=== PATIENT | female | born 1935 | race Caucasian/White ===

== ENCOUNTER 2021-11-25 10:16 | Emergency (ER) | payer MEDICARE, OTHER, SELFPAY ==
[2021-11-25] VITALS (43 sets, daily range): BP systolic 127–162; BP diastolic 60–73; PULSE 62–85; RESP 17–50; O2SAT 93–98
--- NOTE | 2021-11-25 10:18 | ED_ITS ---
HPI - Dizziness <Miguel A Bourgeois MD - Last Filed: 11/25/21 22:20> General Chief Complaint: Neuro Symptoms/Deficit Stated Complaint: Altered Mental Status Time Seen by Provider: 11/25/21 10:17 Source: EMS Mode of arrival: EMS Limitations: altered mental status History of Present Illness HPI Narrative: Patient arrives by EMS. She was at a dialysis center in [place], she was about 15 minutes into dialysis. Her blood pressure apparently dropped to 88. A blood pressure drop is not uncommon for her, this was more than usual. She became rigid. She appeared unresponsive. The event started 30-40 minutes ago. Paramedics raise the concern for seizure, there was no tonic clonic activity. Upon arrival she is moving extremities spontaneously. She was initially not speaking, she is now saying words spontaneously. She does not respond directly to questioning. She lives in a care facility in [place], [place], her caregiver arrives. She has renal failure, she takes dialysis Thursday, Thursday and Thursday. She has no history of hypertension or diabetes. has undergone a recent cardiology evaluation. She passed a stress test. Echo revealed global hypokinesis with EF of 35-40%. She has no history of seizures. Her caregiver applies there was no recent illness. She is normally alert and responsive. She has no history of CVA. Her med list is less far unavailable. Related Data Home Medications Medication Instructions Recorded Confirmed B-complex with vitamin C 1 tab PO DAILY 11/25/21 11/25/21 acetaminophen 500 mg tablet 500 mg PO Q6H PRN 11/25/21 11/25/21 albuterol 90 mcg/actuation aerosol 2 INHALATION 11/25/21 inhaler benzonatate 200 mg PO TID PRN 11/25/21 11/25/21 calcium carbonate 500 1 tab PO DAILY 11/25/21 mg-simethicone 20 mg chewable tablet fluticasone propionate 110 2 puff INHALATION BID 11/25/21 11/25/21 mcg/actuation HFA aerosol inhaler (Flovent HFA) fluticasone propionate 50 1 spray INTRANASAL DAILY 11/25/21 11/25/21 mcg/actuation nasal spray,suspension hydroxychloroquine 200 mg tablet 400 mg PO DAILY 11/25/21 11/25/21 (Plaquenil) inulin 2.5 gram chewable tablet 5 g PO DAILY 11/25/21 11/25/21 loperamide 2 mg capsule 1 mg PO Q2D 11/25/21 11/25/21 melatonin 5 mg chewable tablet 5 mg PO BEDTIME PRN 11/25/21 11/25/21 omeprazole 20 mg capsule,delayed 20 mg PO DAILY 11/25/21 11/25/21 release peg 400-propylene glycol 0.4 %-0.3 2 drp OPHTHALMIC (EYE) DAILY 11/25/21 % eye drops torsemide 20 mg tablet 60 mg PO DAILY 11/25/21 11/25/21 warfarin 1 mg tablet 1 mg PO DAILY 11/25/21 11/25/21 Allergies Allergy/AdvReac Type Severity Reaction Status Date / Time amoxicillin Allergy Verified 11/25/21 11:59 ciprofloxacin Allergy Verified 11/25/21 11:59 codeine Allergy Verified 11/25/21 11:59 Sulfa (Sulfonamide Allergy Verified 11/25/21 11:59 Antibiotics) Review of Systems <Miguel A Bourgeois MD - Last Filed: 11/25/21 22:20> Review of Systems Narrative: Limited HPI given patient's medical condition. Patient History <Miguel A Bourgeois MD - Last Filed: 11/25/21 22:20> Medical History (Updated 11/25/21 @ 22:20 by Miguel A Bourgeois MD) Asthma Dialysis patient Renal failure Exam <Miguel A Bourgeois MD - Last Filed: 11/25/21 22:20> Initial Vital Signs Initial Vital Signs: Vital Signs Pulse Rate 85 11/25/21 10:18 Pulse Oximetry 96 11/25/21 10:18 Const Other: The patient was initially alert and nonresponsive, her speech and communication gradually improved. [facility] Head: normal to inspection, normocephalic and atraumatic Face and sinus: normal facial exam Mouth: oral mucosae normal Throat: posterior oropharynx normal Eyes General: appearance normal, both eyes and all related structures Conjunctivae: conjunctivae normal Sclera: sclerae normal Pupils: PERRL EOM: EOM intact bilaterally Neck Neck: No JVD Resp Auscultation: clear to auscultation bilaterally Cardio Rate: regular rate Rhythm: regular rhythm Heart Sounds: S1 normal, S2 normal, no gallops and no murmurs GI Inspection: normal to inspection Palpation: soft and No tender Auscultation: normal bowel sounds Back/Spine/Pelvis Back: normal to inspection Skin General: no rashes or lesions noted Neuro General: patient alert and patient awake Speech: other (Initially garbled, progressively clearing.) Motor: muscle tone normal throughout Sensory Exam: no sensory deficits noted Extrem General: normal to inspection and full ROM Other: Right arm dialysis fistula Psych Appearance: disheveled <Juvencio Aleman DO - Last Filed: 11/26/21 07:15> Initial Vital Signs Initial Vital Signs: Vital Signs Pulse Rate 85 11/25/21 10:18 Pulse Oximetry 96 11/25/21 10:18 Course <Miguel A Bourgeois MD - Last Filed: 11/25/21 22:20> Course Course Narrative: The patient presented with acute mental status changes, code stroke was called. She gradually improved. There are no obvious motor deficits. Speech and mentation were the last to resolve. Head CT nor MRI showed acute stroke. Is was later recognized from healthcare provider and her daughter that she was hypertensive while receiving dialysis, possible syncopal episode with hypotension. She seemed to improve once a picked upper legs. However it took her about an hour to see her mentation significantly clear. There is no evidence of stroke or significant factor in. Despite her multiple electrolyte abnormalities, none are significant enough to suggest such a problem/event. evaluation manager has been normal. Initially her troponin is elevated, not on suspected with dialysis. EKGs have remained normal. A repeat troponin shows im provement. She has no chest pain or dyspnea. I discussed her CT is with Nephrology, Dr. Curtis at [facility]. He was suspicious of the hypotension. He felt her electrolytes are not so abnormal that she requires immediate dialysis, she should be okay to resume dialysis as scheduled in 2 days. I discussed her troponin with Cardiology, Dr. Powell. He can recognize that the renal failure/dialysis may be contributing to the troponin. He recommended serial analysis of her CK and troponin. If labs are level improving she should follow up for outpatient evaluation. If there is a significant rise in troponin she may require immediate Cardiology attention. The case was discussed our hospitalist, considering dialysis not available here our hospitalist would not accept admission. Multiple other local hospitalist were approached, no beds are available. Her daughter indicated she felt her mother's speech was still garbled. The patient is hard of hearing and wears hearing a ids. With her hearing aids in place, her communication and speech seem be back to baseline. The patient will remain in the ER through the night. Dr. Aleman, my ER partner, is aware her clinical situation and probable disposition. Orders Ordered: ED Orders 11/26/21 01:15 Troponin I Stat 11/26/21 06:00 Troponin I Stat Discontinued Medications Acetaminophen (Acetaminophen 325 Mg Tablet) 650 mg PO NOW ONE Stop: 11/26/21 04:39 Last Admin: 11/26/21 04:46 Dose: 650 mg Documented by: FELICIA Aspirin (Aspirin 81 Mg Chew Tab) 324 mg PO NOW ONE Stop: 11/25/21 12:19 Last Admin: 11/25/21 12:32 Dose: 324 mg Documented by: MAREK Vital Signs Vital signs: Vital Signs - 8 hr 11/25/21 23:30 11/26/21 00:00 11/26/21 00:10 Pulse Rate 62 63 66 Respiratory Rate 22 20 22 Blood Pressure 125/58 L Pulse Oximetry 95 97 82 L 11/26/21 00:30 11/26/21 01:00 11/26/21 01:30 Pulse Rate 64 65 62 Respiratory Rate 22 22 21 Blood Pressure 117/56 L 112/55 L 112/58 L Pulse Oximetry 95 97 95 11/26/21 02:00 11/26/21 02:30 11/26/21 03:00 Pulse Rate 62 64 66 Respiratory Rate 22 23 20 Blood Pressure 128/58 L 135/58 L Pulse Oximetry 96 97 95 11/26/21 03:01 11/26/21 03:30 11/26/21 04:00 Pulse Rate 66 66 66 Respiratory Rate 17 21 22 Blood Pressure 111/55 L 121/57 L 122/58 L Pulse Oximetry 96 11/26/21 04:30 11/26/21 05:00 11/26/21 05:30 Pulse Rate 66 66 64 Respiratory Rate 23 22 Blood Pressure 114/53 L 128/56 L Pulse Oximetry 11/26/21 06:00 11/26/21 06:01 11/26/21 06:30 Pulse Rate 65 66 66 Respiratory Rate 23 23 24 Blood Pressure 120/58 L Pulse Oximetry 96 11/26/21 06:31 Pulse Rate 64 Respiratory Rate 13 Blood Pressure 122/59 L Pulse Oximetry 97 <Juvencio Lanker, DO - Last Filed: 11/26/21 07:15> Orders Ordered: ED Orders 11/26/21 01:15 Troponin I Stat 11/26/21 06:00 Troponin I Stat Discontinued Medications Acetaminophen (Acetaminophen 325 Mg Tablet) 650 mg PO NOW ONE Stop: 11/26/21 04:39 Last Admin: 11/26/21 04:46 Dose: 650 mg Documented by: FELICIA Aspirin (Aspirin 81 Mg Chew Tab) 324 mg PO NOW ONE Stop: 11/25/21 12:19 Last Admin: 11/25/21 12:32 Dose: 324 mg Documented by: MAREK Vital Signs Vital signs: Vital Signs - 8 hr 11/25/21 23:30 11/26/21 00:00 11/26/21 00:10 Pulse Rate 62 63 66 Respiratory Rate 22 20 22 Blood Pressure 125/58 L Pulse Oximetry 95 97 82 L 11/26/21 00:30 11/26/21 01:00 11/26/21 01:30 Pulse Rate 64 65 62 Respiratory Rate 22 22 21 Blood Pressure 117/56 L 112/55 L 112/58 L Pulse Oximetry 95 97 95 11/26/21 02:00 11/26/21 02:30 11/26/21 03:00 Pulse Rate 62 64 66 Respiratory Rate 22 23 20 Blood Pressure 128/58 L 135/58 L Pulse Oximetry 96 97 95 11/26/21 03:01 11/26/21 03:30 11/26/21 04:00 Pulse Rate 66 66 66 Respiratory Rate 17 21 22 Blood Pressure 111/55 L 121/57 L 122/58 L Pulse Oximetry 96 11/26/21 04:30 11/26/21 05:00 11/26/21 05:30 Pulse Rate 66 66 64 Respiratory Rate 23 22 Blood Pressure 114/53 L 128/56 L Pulse Oximetry 11/26/21 06:00 11/26/21 06:01 11/26/21 06:30 Pulse Rate 65 66 66 Respiratory Rate 23 23 24 Blood Pressure 120/58 L Pulse Oximetry 96 11/26/21 06:31 Pulse Rate 64 Respiratory Rate 13 Blood Pressure 122/59 L Pulse Oximetry 97 MDM - Dizziness <Miguel A Bourgeois MD - Last Filed: 11/25/21 22:20> Lab Data Result diagrams: 11/25/21 10:25 03/07/22 10:30 Labs: Lab Results 11/25/21 11/25/21 11/25/21 Range/Units 10:25 10:25 10:25 WBC 6.2 (4.5-11.0) X10^3/uL RBC 3.06 L (4.0-5.2) X10^6/uL Hgb 11.0 L (12.0-16.0) g/dL Hct 32.7 L (36-46) % MCV 106.8 H (80-100) fL MCH 35.9 H (26-34) PG MCHC 33.6 (30-36) % RDW 18.0 H (11.6-14.8) % Plt Count 87 L (150-400) X10^3/uL Neut % (Auto) 84.4 H (50-75) % Lymph % (Auto) 9.6 L (25-40) % [place] % (Auto) 4.6 (3-14) % Eos % (Auto) 1.1 L (2-4) % Baso % (Auto) 0.3 (0-2) % Neut # (Auto) 5200 (6695-6096) /uL Lymph # (Auto) 600 L (1525-1068) /uL [place] # (Auto) 300 (0-900) /uL Eos # (Auto) 100 (0-450) /uL Baso # (Auto) 0 (0-100) /uL PT (10.1-12.7) SECONDS INR (0.9-1.3) Sodium (137-145) mmol/L Potassium (3.4-5.1) mmol/L Chloride (98-107) mmol/L Carbon Dioxide (22-32) mmol/L BUN (7-17) mg/dL Creatinine (0.52-1.04) mg/dL Estimated GFR (>60) mL/min BUN/Creatinine Ratio (6-22) Glucose (80-110) mg/dL Lactate 1.3 (0.7-2.1) mmol/L Calcium (8.4-10.2) mg/dL Phosphorus (2.8-4.1) mg/dL Magnesium (1.6-2.3) mg/dL Total Bilirubin (0.2-1.3) mg/dL AST (14-36) IU/L ALT (<35) IU/L Alkaline Phosphatase (38-126) U/L Ammonia 13 (9-30) umol/L Total Creatine Kinase (30-135) U/L CK-MB (CK-2) CK-MB (CK-2) Rel Index Troponin I (0.01-0.034) ng/mL Total Protein (6.3-8.2) g/dL Albumin (3.5-5.0) g/dL Globulin (1.7-4.1) g/dL Albumin/Globulin Ratio (1.0-2.8) Prolactin (3.0-18.6) ng/mL Urine Color Urine Appearance Urine pH (4.5-8.0) Ur Specific [place] (1.000-1.035) Urine Protein (Negative) Urine Glucose (UA) (Negative) g/dL Urine Ketones (NEGATIVE) Urine Occult Blood (Negative) Urine Nitrate (Negative) Urine Bilirubin (NEGATIVE) Urine Urobilinogen (0.2) E.U./dL Ur Leukocyte Esterase (NEGATIVE) Urine RBC (0-5/HPF) Urine WBC (0-5/HPF) Amorphous Sediment Urine Bacteria (None) Ur Culture Indicated? Salicylates (<20) mg/dL U Opiates 300ng/mL cut (Negative) Ur Oxycodone Screen (Negative) Urine Methadone Screen (Negative) Acetaminophen (10-30) ug/mL Ur Barbiturates Screen (Negative) U Tricyclic Antidepress (Negative) Ur Phencyclidine Scrn (Negative) Ur Amphetamines Screen (Negative) U Methamphetamines Scrn (Negative) Ur MDMA Scrn (Ecstasy) (Negative) U Benzodiazepines Scrn (Negative) Urine Cocaine Screen (Negative) U Marijuana (THC) Screen (Negative) Ethyl Alcohol ( - 10) mg/dL SARS-CoV-2 (PCR) (Negative) 11/25/21 11/25/21 11/25/21 Range/Units 10:25 10:25 10:30 WBC (4.5-11.0) X10^3/uL RBC (4.0-5.2) X10^6/uL Hgb (12.0-16.0) g/dL Hct (36-46) % MCV (80-100) fL MCH (26-34) PG MCHC (30-36) % RDW (11.6-14.8) % Plt Count (150-400) X10^3/uL Neut % (Auto) (50-75) % Lymph % (Auto) (25-40) % [place] % (Auto) (3-14) % Eos % (Auto) (2-4) % Baso % (Auto) (0-2) % Neut # (Auto) (9857-3901) /uL Lymph # (Auto) (4204-1080) /uL [place] # (Auto) (0-900) /uL Eos # (Auto) (0-450) /uL Baso # (Auto) (0-100) /uL PT 17.7 H (10.1-12.7) SECONDS INR 1.6 H (0.9-1.3) Sodium 126 L (137-145) mmol/L Potassium 5.2 H (3.4-5.1) mmol/L Chloride 93 L (98-107) mmol/L Carbon Dioxide 22 (22-32) mmol/L BUN 31 H (7-17) mg/dL Creatinine 3.10 H (0.52-1.04) mg/dL Estimated GFR 14.2 L (>60) mL/min BUN/Creatinine Ratio 10.0 (6-22) Glucose 98 (80-110) mg/dL Lactate (0.7-2.1) mmol/L Calcium 8.9 (8.4-10.2) mg/dL Phosphorus 5.4 H (2.8-4.1) mg/dL Magnesium 2.0 (1.6-2.3) mg/dL Total Bilirubin 0.7 (0.2-1.3) mg/dL AST 66 H (14-36) IU/L ALT 31 (<35) IU/L Alkaline Phosphatase 146 H (38-126) U/L Ammonia (9-30) umol/L Total Creatine Kinase 90 (30-135) U/L CK-MB (CK-2) TNP CK-MB (CK-2) Rel Index TNP Troponin I 0.261 H* (0.01-0.034) ng/mL Total Protein 7.7 (6.3-8.2) g/dL Albumin 4.3 (3.5-5.0) g/dL Globulin 3.4 (1.7-4.1) g/dL Albumin/Globulin Ratio 1.3 (1.0-2.8) Prolactin 20.3 H (3.0-18.6) ng/mL Urine Color Urine Appearance Urine pH (4.5-8.0) Ur Specific [place] (1.000-1.035) Urine Protein (Negative) Urine Glucose (UA) (Negative) g/dL Urine Ketones (NEGATIVE) Urine Occult Blood (Negative) Urine Nitrate (Negative) Urine Bilirubin (NEGATIVE) Urine Urobilinogen (0.2) E.U./dL Ur Leukocyte Esterase (NEGATIVE) Urine RBC (0-5/HPF) Urine WBC (0-5/HPF) Amorphous Sediment Urine Bacteria (None) Ur Culture Indicated? Salicylates < 1.0 (<20) mg/dL U Opiates 300ng/mL cut (Negative) Ur Oxycodone Screen (Negative) Urine Methadone Screen (Negative) Acetaminophen < 10 L (10-30) ug/mL Ur Barbiturates Screen (Negative) U Tricyclic Antidepress (Negative) Ur Phencyclidine Scrn (Negative) Ur Amphetamines Screen (Negative) U Methamphetamines Scrn (Negative) Ur MDMA Scrn (Ecstasy) (Negative) U Benzodiazepines Scrn (Negative) Urine Cocaine Screen (Negative) U Marijuana (THC) Screen (Negative) Ethyl Alcohol < 10 ( - 10) mg/dL SARS-CoV-2 (PCR) (Negative) 11/25/21 11/25/21 11/25/21 Range/Units 10:54 10:54 12:03 WBC (4.5-11.0) X10^3/uL RBC (4.0-5.2) X10^6/uL Hgb (12.0-16.0) g/dL Hct (36-46) % MCV (80-100) fL MCH (26-34) PG MCHC (30-36) % RDW (11.6-14.8) % Plt Count (150-400) X10^3/uL Neut % (Auto) (50-75) % Lymph % (Auto) (25-40) % [place] % (Auto) (3-14) % Eos % (Auto) (2-4) % Baso % (Auto) (0-2) % Neut # (Auto) (9062-7812) /uL Lymph # (Auto) (0333-5313) /uL [place] # (Auto) (0-900) /uL Eos # (Auto) (0-450) /uL Baso # (Auto) (0-100) /uL PT (10.1-12.7) SECONDS INR (0.9-1.3) Sodium (137-145) mmol/L Potassium (3.4-5.1) mmol/L Chloride (98-107) mmol/L Carbon Dioxide (22-32) mmol/L BUN (7-17) mg/dL Creatinine (0.52-1.04) mg/dL Estimated GFR (>60) mL/min BUN/Creatinine Ratio (6-22) Glucose (80-110) mg/dL Lactate (0.7-2.1) mmol/L Calcium (8.4-10.2) mg/dL Phosphorus (2.8-4.1) mg/dL Magnesium (1.6-2.3) mg/dL Total Bilirubin (0.2-1.3) mg/dL AST (14-36) IU/L ALT (<35) IU/L Alkaline Phosphatase (38-126) U/L Ammonia (9-30) umol/L Total Creatine Kinase (30-135) U/L CK-MB (CK-2) CK-MB (CK-2) Rel Index Troponin I (0.01-0.034) ng/mL Total Protein (6.3-8.2) g/dL Albumin (3.5-5.0) g/dL Globulin (1.7-4.1) g/dL Albumin/Globulin Ratio (1.0-2.8) Prolactin (3.0-18.6) ng/mL Urine Color Yellow Urine Appearance Clear Urine pH 8.0 (4.5-8.0) Ur Specific [place] 1.010 (1.000-1.035) Urine Protein 2+ H (Negative) Urine Glucose (UA) Negative (Negative) g/dL Urine Ketones Negative (NEGATIVE) Urine Occult Blood 1+ H (Negative) Urine Nitrate Negative (Negative) Urine Bilirubin Negative (NEGATIVE) Urine Urobilinogen 0.2 (0.2) E.U./dL Ur Leukocyte Esterase Negative (NEGATIVE) Urine RBC 0-1/hpf (0-5/HPF) Urine WBC None seen (0-5/HPF) Amorphous Sediment 2+ Urine Bacteria None seen (None) Ur Culture Indicated? Cult not indicated Salicylates (<20) mg/dL U Opiates 300ng/mL cut Negative (Negative) Ur Oxycodone Screen Negative (Negative) Urine Methadone Screen Negative (Negative) Acetaminophen (10-30) ug/mL Ur Barbiturates Screen Negative (Negative) U Tricyclic Antidepress Negative (Negative) Ur Phencyclidine Scrn Negative (Negative) Ur Amphetamines Screen Negative (Negative) U Methamphetamines Scrn Negative (Negative) Ur MDMA Scrn (Ecstasy) Negative (Negative) U Benzodiazepines Scrn Negative (Negative) Urine Cocaine Screen Negative (Negative) U Marijuana (THC) Screen Negative (Negative) Ethyl Alcohol ( - 10) mg/dL SARS-CoV-2 (PCR) Negative (Negative) 11/25/21 11/26/21 11/26/21 Range/Units 19:30 01:15 06:02 WBC (4.5-11.0) X10^3/uL RBC (4.0-5.2) X10^6/uL Hgb (12.0-16.0) g/dL Hct (36-46) % MCV (80-100) fL MCH (26-34) PG MCHC (30-36) % RDW (11.6-14.8) % Plt Count (150-400) X10^3/uL Neut % (Auto) (50-75) % Lymph % (Auto) (25-40) % [place] % (Auto) (3-14) % Eos % (Auto) (2-4) % Baso % (Auto) (0-2) % Neut # (Auto) (8229-9099) /uL Lymph # (Auto) (8837-8136) /uL [place] # (Auto) (0-900) /uL Eos # (Auto) (0-450) /uL Baso # (Auto) (0-100) /uL PT (10.1-12.7) SECONDS INR (0.9-1.3) Sodium (137-145) mmol/L Potassium (3.4-5.1) mmol/L Chloride (98-107) mmol/L Carbon Dioxide (22-32) mmol/L BUN (7-17) mg/dL Creatinine (0.52-1.04) mg/dL Estimated GFR (>60) mL/min BUN/Creatinine Ratio (6-22) Glucose (80-110) mg/dL Lactate (0.7-2.1) mmol/L Calcium (8.4-10.2) mg/dL Phosphorus (2.8-4.1) mg/dL Magnesium (1.6-2.3) mg/dL Total Bilirubin (0.2-1.3) mg/dL AST (14-36) IU/L ALT (<35) IU/L Alkaline Phosphatase (38-126) U/L Ammonia (9-30) umol/L Total Creatine Kinase (30-135) U/L CK-MB (CK-2) CK-MB (CK-2) Rel Index Troponin I 0.223 H* 0.240 H* 0.265 H* (0.01-0.034) ng/mL Total Protein (6.3-8.2) g/dL Albumin (3.5-5.0) g/dL Globulin (1.7-4.1) g/dL Albumin/Globulin Ratio (1.0-2.8) Prolactin (3.0-18.6) ng/mL Urine Color Urine Appearance Urine pH (4.5-8.0) Ur Specific [place] (1.000-1.035) Urine Protein (Negative) Urine Glucose (UA) (Negative) g/dL Urine Ketones (NEGATIVE) Urine Occult Blood (Negative) Urine Nitrate (Negative) Urine Bilirubin (NEGATIVE) Urine Urobilinogen (0.2) E.U./dL Ur Leukocyte Esterase (NEGATIVE) Urine RBC (0-5/HPF) Urine WBC (0-5/HPF) Amorphous Sediment Urine Bacteria (None) Ur Culture Indicated? Salicylates (<20) mg/dL U Opiates 300ng/mL cut (Negative) Ur Oxycodone Screen (Negative) Urine Methadone Screen (Negative) Acetaminophen (10-30) ug/mL Ur Barbiturates Screen (Negative) U Tricyclic Antidepress (Negative) Ur Phencyclidine Scrn (Negative) Ur Amphetamines Screen (Negative) U Methamphetamines Scrn (Negative) Ur MDMA Scrn (Ecstasy) (Negative) U Benzodiazepines Scrn (Negative) Urine Cocaine Screen (Negative) U Marijuana (THC) Screen (Negative) Ethyl Alcohol ( - 10) mg/dL SARS-CoV-2 (PCR) (Negative) Point of Care Testing Glucose POC [address] scan - head: Radiologist's Impression: [address] [address] [address] Scan Report Signed Patient: Juani Nichole MR#: [id number] : 1935 Acct:[id number] Age/Sex: 86 / F Date of Service: 11/25/21 Loc: ED Accession Number: [id number] ?? Procedure: CT Stroke Ordering Provider: Miguel A Bougreois MD PROCEDURE:? CT STROKE ? INDICATIONS:? CODE STROKE ? TECHNIQUE:? Noncontrast 4.5 mm thick angled axial sections acquired from the foramen magnum to the vertex, with coronal reformats.? For radiation dose reduction, the following was used:? automated exposure control, adjustment of mA and/or kV according to patient size.? ? COMPARISON:? None. ? FINDINGS:? Image quality:? Excellent.? ? CSF spaces:? Basal cisterns are patent.? No extra-axial fluid collections.? The ventricles are symmetric in size and shape.? ? Brain:? No intracranial bleeds or masses.? There is cerebral volume loss for age, with resultant ventricular and sulcal prominence.? There are periventricular and deep white matter chronic small vessel ischemic changes.? There is intracranial internal carotid artery atherosclerosis.? ? Skull and face:? Calvarium and visualized facial bones appear intact, without suspicious lesions.? ? Sinuses:? Visualized sinuses and mastoids are clear.? ? IMPRESSION:? ? 1. No acute intracranial process. ? 2. Moderate to severe atrophy and chronic microvascular ischemic changes. ? The above findings were discussed with Dr. Miguel A Bourgeois on 11/25/2021 at 10:27 a.m. ? This study fulfills neurological imaging criteria for inclusion or exclusion of acute stroke therapies based on available published neurological guidelines.? Brain MRI:: Radiologist's Impression: Launch?Image [address] [address] Magnetic Resonance Report Signed Patient: Juani Nichole MR#: [id number] : 1935 Acct:[id number] Age/Sex: 86 / F Date of Service: 11/25/21 Loc: ED Accession Number: [id number] ?? Procedure: MR head/brain wo con Ordering Provider: Miguel A Bourgeois MD PROCEDURE:? MR HEAD/BRAIN WO CON ? INDICATIONS:? Possible CVA ? TECHNIQUE:? Non-contrast axial T1 spin echo, axial T2 fast spin echo, sagittal and axial FLAIR, coronal T2 fast spin echo, axial gradient echo, axial diffusion and ADC through the brain.? ? COMPARISON:? [facility], CT, CT STROKE, 11/25/2021, 10:11. ? FINDINGS:? Image quality:? Partially degraded by motion artifact. ? CSF spaces:? Ventricles appear symmetric in size and shape.? Basal cisterns are patent.? No extra-axial fluid collections.? ? Brain:? No intracranial bleeds or mass effects.? There is cerebral volume loss for age.? There are periventricular and deep white matter chronic small vessel ischemic changes.? Brainstem appears normal.? Diffusion-weighted images show no acute ischemic insults.? No chronic ischemic insults.? Normal intravascular flow voids are present.? ? Skull and face:? Calvarial bone marrow is normal in signal.? Orbits are normal.? ? Sinuses:? Sinuses and mastoids are clear.? ? IMPRESSION:? 1. Volume loss and small vessel ischemic disease. 2. No acute process.? No recent infarct.? ? ? Dictated by: Doreen Nesbitt M.D. on 11/25/2021 at 15:23 ? ? Approved by: Doreen Nesbitt M.D. on 11/25/2021 at 15:24?? ECG Data Attestation: I personally reviewed and interpreted this ECG as follows: (EKG #1: Normal sinus rhythm rate 82 beats per minute. First-degree AV block. Nonspecific ST T wave changes. No ectopy. EKG #2: No changes from EKG 1.) <Juvencio Aleman, DO - Last Filed: 11/26/21 07:15> Lab Data Labs: Lab Results 11/25/21 11/25/21 11/25/21 Range/Units 10:25 10:25 10:25 WBC 6.2 (4.5-11.0) X10^3/uL RBC 3.06 L (4.0-5.2) X10^6/uL Hgb 11.0 L (12.0-16.0) g/dL Hct 32.7 L (36-46) % MCV 106.8 H (80-100) fL MCH 35.9 H (26-34) PG MCHC 33.6 (30-36) % RDW 18.0 H (11.6-14.8) % Plt Count 87 L (150-400) X10^3/uL Neut % (Auto) 84.4 H (50-75) % Lymph % (Auto) 9.6 L (25-40) % [place] % (Auto) 4.6 (3-14) % Eos % (Auto) 1.1 L (2-4) % Baso % (Auto) 0.3 (0-2) % Neut # (Auto) 5200 (4506-7201) /uL Lymph # (Auto) 600 L (8239-8186) /uL [place] # (Auto) 300 (0-900) /uL Eos # (Auto) 100 (0-450) /uL Baso # (Auto) 0 (0-100) /uL PT (10.1-12.7) SECONDS INR (0.9-1.3) Sodium (137-145) mmol/L Potassium (3.4-5.1) mmol/L Chloride (98-107) mmol/L Carbon Dioxide (22-32) mmol/L BUN (7-17) mg/dL Creatinine (0.52-1.04) mg/dL Estimated GFR (>60) mL/min BUN/Creatinine Ratio (6-22) Glucose (80-110) mg/dL Lactate 1.3 (0.7-2.1) mmol/L Calcium (8.4-10.2) mg/dL Phosphorus (2.8-4.1) mg/dL Magnesium (1.6-2.3) mg/dL Total Bilirubin (0.2-1.3) mg/dL AST (14-36) IU/L ALT (<35) IU/L Alkaline Phosphatase (38-126) U/L Ammonia 13 (9-30) umol/L Total Creatine Kinase (30-135) U/L CK-MB (CK-2) CK-MB (CK-2) Rel Index Troponin I (0.01-0.034) ng/mL Total Protein (6.3-8.2) g/dL Albumin (3.5-5.0) g/dL Globulin (1.7-4.1) g/dL Albumin/Globulin Ratio (1.0-2.8) Prolactin (3.0-18.6) ng/mL Urine Color Urine Appearance Urine pH (4.5-8.0) Ur Specific [place] (1.000-1.035) Urine Protein (Negative) Urine Glucose (UA) (Negative) g/dL Urine Ketones (NEGATIVE) Urine Occult Blood (Negative) Urine Nitrate (Negative) Urine Bilirubin (NEGATIVE) Urine Urobilinogen (0.2) E.U./dL Ur Leukocyte Esterase (NEGATIVE) Urine RBC (0-5/HPF) Urine WBC (0-5/HPF) Amorphous Sediment Urine Bacteria (None) Ur Culture Indicated? Salicylates (<20) mg/dL U Opiates 300ng/mL cut (Negative) Ur Oxycodone Screen (Negative) Urine Methadone Screen (Negative) Acetaminophen (10-30) ug/mL Ur Barbiturates Screen (Negative) U Tricyclic Antidepress (Negative) Ur Phencyclidine Scrn (Negative) Ur Amphetamines Screen (Negative) U Methamphetamines Scrn (Negative) Ur MDMA Scrn (Ecstasy) (Negative) U Benzodiazepines Scrn (Negative) Urine Cocaine Screen (Negative) U Marijuana (THC) Screen (Negative) Ethyl Alcohol ( - 10) mg/dL SARS-CoV-2 (PCR) (Negative) 11/25/21 11/25/21 11/25/21 Range/Units 10:25 10:25 10:30 WBC (4.5-11.0) X10^3/uL RBC (4.0-5.2) X10^6/uL Hgb (12.0-16.0) g/dL Hct (36-46) % MCV (80-100) fL MCH (26-34) PG MCHC (30-36) % RDW (11.6-14.8) % Plt Count (150-400) X10^3/uL Neut % (Auto) (50-75) % Lymph % (Auto) (25-40) % [place] % (Auto) (3-14) % Eos % (Auto) (2-4) % Baso % (Auto) (0-2) % Neut # (Auto) (9194-1833) /uL Lymph # (Auto) (0707-2964) /uL [place] # (Auto) (0-900) /uL Eos # (Auto) (0-450) /uL Baso # (Auto) (0-100) /uL PT 17.7 H (10.1-12.7) SECONDS INR 1.6 H (0.9-1.3) Sodium 126 L (137-145) mmol/L Potassium 5.2 H (3.4-5.1) mmol/L Chloride 93 L (98-107) mmol/L Carbon Dioxide 22 (22-32) mmol/L BUN 31 H (7-17) mg/dL Creatinine 3.10 H (0.52-1.04) mg/dL Estimated GFR 14.2 L (>60) mL/min BUN/Creatinine Ratio 10.0 (6-22) Glucose 98 (80-110) mg/dL Lactate (0.7-2.1) mmol/L Calcium 8.9 (8.4-10.2) mg/dL Phosphorus 5.4 H (2.8-4.1) mg/dL Magnesium 2.0 (1.6-2.3) mg/dL Total Bilirubin 0.7 (0.2-1.3) mg/dL AST 66 H (14-36) IU/L ALT 31 (<35) IU/L Alkaline Phosphatase 146 H (38-126) U/L Ammonia (9-30) umol/L Total Creatine Kinase 90 (30-135) U/L CK-MB (CK-2) TNP CK-MB (CK-2) Rel Index TNP Troponin I 0.261 H* (0.01-0.034) ng/mL Total Protein 7.7 (6.3-8.2) g/dL Albumin 4.3 (3.5-5.0) g/dL Globulin 3.4 (1.7-4.1) g/dL Albumin/Globulin Ratio 1.3 (1.0-2.8) Prolactin 20.3 H (3.0-18.6) ng/mL Urine Color Urine Appearance Urine pH (4.5-8.0) Ur Specific [place] (1.000-1.035) Urine Protein (Negative) Urine Glucose (UA) (Negative) g/dL Urine Ketones (NEGATIVE) Urine Occult Blood (Negative) Urine Nitrate (Negative) Urine Bilirubin (NEGATIVE) Urine Urobilinogen (0.2) E.U./dL Ur Leukocyte Esterase (NEGATIVE) Urine RBC (0-5/HPF) Urine WBC (0-5/HPF) Amorphous Sediment Urine Bacteria (None) Ur Culture Indicated? Salicylates < 1.0 (<20) mg/dL U Opiates 300ng/mL cut (Negative) Ur Oxycodone Screen (Negative) Urine Methadone Screen (Negative) Acetaminophen < 10 L (10-30) ug/mL Ur Barbiturates Screen (Negative) U Tricyclic Antidepress (Negative) Ur Phencyclidine Scrn (Negative) Ur Amphetamines Screen (Negative) U Methamphetamines Scrn (Negative) Ur MDMA Scrn (Ecstasy) (Negative) U Benzodiazepines Scrn (Negative) Urine Cocaine Screen (Negative) U Marijuana (THC) Screen (Negative) Ethyl Alcohol < 10 ( - 10) mg/dL SARS-CoV-2 (PCR) (Negative) 11/25/21 11/25/21 11/25/21 Range/Units 10:54 10:54 12:03 WBC (4.5-11.0) X10^3/uL RBC (4.0-5.2) X10^6/uL Hgb (12.0-16.0) g/dL Hct (36-46) % MCV (80-100) fL MCH (26-34) PG MCHC (30-36) % RDW (11.6-14.8) % Plt Count (150-400) X10^3/uL Neut % (Auto) (50-75) % Lymph % (Auto) (25-40) % [place] % (Auto) (3-14) % Eos % (Auto) (2-4) % Baso % (Auto) (0-2) % Neut # (Auto) (5170-7135) /uL Lymph # (Auto) (9354-5752) /uL [place] # (Auto) (0-900) /uL Eos # (Auto) (0-450) /uL Baso # (Auto) (0-100) /uL PT (10.1-12.7) SECONDS INR (0.9-1.3) Sodium (137-145) mmol/L Potassium (3.4-5.1) mmol/L Chloride (98-107) mmol/L Carbon Dioxide (22-32) mmol/L BUN (7-17) mg/dL Creatinine (0.52-1.04) mg/dL Estimated GFR (>60) mL/min BUN/Creatinine Ratio (6-22) Glucose (80-110) mg/dL Lactate (0.7-2.1) mmol/L Calcium (8.4-10.2) mg/dL Phosphorus (2.8-4.1) mg/dL Magnesium (1.6-2.3) mg/dL Total Bilirubin (0.2-1.3) mg/dL AST (14-36) IU/L ALT (<35) IU/L Alkaline Phosphatase (38-126) U/L Ammonia (9-30) umol/L Total Creatine Kinase (30-135) U/L CK-MB (CK-2) CK-MB (CK-2) Rel Index Troponin I (0.01-0.034) ng/mL Total Protein (6.3-8.2) g/dL Albumin (3.5-5.0) g/dL Globulin (1.7-4.1) g/dL Albumin/Globulin Ratio (1.0-2.8) Prolactin (3.0-18.6) ng/mL Urine Color Yellow Urine Appearance Clear Urine pH 8.0 (4.5-8.0) Ur Specific [place] 1.010 (1.000-1.035) Urine Protein 2+ H (Negative) Urine Glucose (UA) Negative (Negative) g/dL Urine Ketones Negative (NEGATIVE) Urine Occult Blood 1+ H (Negative) Urine Nitrate Negative (Negative) Urine Bilirubin Negative (NEGATIVE) Urine Urobilinogen 0.2 (0.2) E.U./dL Ur Leukocyte Esterase Negative (NEGATIVE) Urine RBC 0-1/hpf (0-5/HPF) Urine WBC None seen (0-5/HPF) Amorphous Sediment 2+ Urine Bacteria None seen (None) Ur Culture Indicated? Cult not indicated Salicylates (<20) mg/dL U Opiates 300ng/mL cut Negative (Negative) Ur Oxycodone Screen Negative (Negative) Urine Methadone Screen Negative (Negative) Acetaminophen (10-30) ug/mL Ur Barbiturates Screen Negative (Negative) U Tricyclic Antidepress Negative (Negative) Ur Phencyclidine Scrn Negative (Negative) Ur Amphetamines Screen Negative (Negative) U Methamphetamines Scrn Negative (Negative) Ur MDMA Scrn (Ecstasy) Negative (Negative) U Benzodiazepines Scrn Negative (Negative) Urine Cocaine Screen Negative (Negative) U Marijuana (THC) Screen Negative (Negative) Ethyl Alcohol ( - 10) mg/dL SARS-CoV-2 (PCR) Negative (Negative) 11/25/21 11/26/21 11/26/21 Range/Units 19:30 01:15 06:02 WBC (4.5-11.0) X10^3/uL RBC (4.0-5.2) X10^6/uL Hgb (12.0-16.0) g/dL Hct (36-46) % MCV (80-100) fL MCH (26-34) PG MCHC (30-36) % RDW (11.6-14.8) % Plt Count (150-400) X10^3/uL Neut % (Auto) (50-75) % Lymph % (Auto) (25-40) % [place] % (Auto) (3-14) % Eos % (Auto) (2-4) % Baso % (Auto) (0-2) % Neut # (Auto) (7991-7812) /uL Lymph # (Auto) (8691-5438) /uL [place] # (Auto) (0-900) /uL Eos # (Auto) (0-450) /uL Baso # (Auto) (0-100) /uL PT (10.1-12.7) SECONDS INR (0.9-1.3) Sodium (137-145) mmol/L Potassium (3.4-5.1) mmol/L Chloride (98-107) mmol/L Carbon Dioxide (22-32) mmol/L BUN (7-17) mg/dL Creatinine (0.52-1.04) mg/dL Estimated GFR (>60) mL/min BUN/Creatinine Ratio (6-22) Glucose (80-110) mg/dL Lactate (0.7-2.1) mmol/L Calcium (8.4-10.2) mg/dL Phosphorus (2.8-4.1) mg/dL Magnesium (1.6-2.3) mg/dL Total Bilirubin (0.2-1.3) mg/dL AST (14-36) IU/L ALT (<35) IU/L Alkaline Phosphatase (38-126) U/L Ammonia (9-30) umol/L Total Creatine Kinase (30-135) U/L CK-MB (CK-2) CK-MB (CK-2) Rel Index Troponin I 0.223 H* 0.240 H* 0.265 H* (0.01-0.034) ng/mL Total Protein (6.3-8.2) g/dL Albumin (3.5-5.0) g/dL Globulin (1.7-4.1) g/dL Albumin/Globulin Ratio (1.0-2.8) Prolactin (3.0-18.6) ng/mL Urine Color Urine Appearance Urine pH (4.5-8.0) Ur Specific [place] (1.000-1.035) Urine Protein (Negative) Urine Glucose (UA) (Negative) g/dL Urine Ketones (NEGATIVE) Urine Occult Blood (Negative) Urine Nitrate (Negative) Urine Bilirubin (NEGATIVE) Urine Urobilinogen (0.2) E.U./dL Ur Leukocyte Esterase (NEGATIVE) Urine RBC (0-5/HPF) Urine WBC (0-5/HPF) Amorphous Sediment Urine Bacteria (None) Ur Culture Indicated? Salicylates (<20) mg/dL U Opiates 300ng/mL cut (Negative) Ur Oxycodone Screen (Negative) Urine Methadone Screen (Negative) Acetaminophen (10-30) ug/mL Ur Barbiturates Screen (Negative) U Tricyclic Antidepress (Negative) Ur Phencyclidine Scrn (Negative) Ur Amphetamines Screen (Negative) U Methamphetamines Scrn (Negative) Ur MDMA Scrn (Ecstasy) (Negative) U Benzodiazepines Scrn (Negative) Urine Cocaine Screen (Negative) U Marijuana (THC) Screen (Negative) Ethyl Alcohol ( - 10) mg/dL SARS-CoV-2 (PCR) (Negative) Point of Care Testing Glucose POC 88 MDM Narrative Medical decision making narrative: Dr aleman: Received turned over. Review patient's history and physical and labs up to this point. Day provider has spoken with cardiology and also Nephrology. Patient not in need of urgent dialysis. Cardiology also recommended observation and trending of the troponins. Her troponins have not changed over 20 hours. She continues to be stable. Patient will be discharged home to follow up with her regularly scheduled dialysis and to continue all of her medications. Critical Care Time <Miguel A Bourgeois MD - Last Filed: 11/25/21 22:20> Critical Care Time Critical Care Time: Yes Total Critical Care Time: 120 Attestation: Critical care time included the initial patient evaluation, review the situation with her daughter and caregiver, and multiple consultations. There is extensive, ongoing care in the ER. Patient is aware of the situation. Discharge Plan Departure Patient Disposition: Home Clinical Impression: Acute alteration in mental status, Syncope, Chronic kidney disease with end stage renal failure on dialysis, Elevated troponin Activity Restrictions/Additional Instructions: Juani can continue to take all of her medications as directed. She can continue to follow-up with her regular scheduled dialysis treatment. Contact her primary doctor for a follow-up. Return to the emergency department for any new or worse pilar symptoms. Prescriptions: No Action torsemide 20 mg Tablet 60 mg PO DAILY 0RF loperamide [Imodium] 2 mg Capsule 1 mg PO Q2D 0RF acetaminophen 500 mg Tablet 500 mg PO Q6H PRN (Reason: Pain (Scale Score 1-3)) 0RF Tums Anti-Gas/Antacid 500-20 mg Tablet,Chewable 1 tab PO DAILY 0RF Rx Instructions: MAR states 1000mg tab qd, not found in med rec omeprazole 20 mg Capsule,Delayed Release(Dr/Ec) 20 mg PO DAILY 0RF albuterol 90 mcg/actuation Aerosol 2 INHALATION 0RF warfarin 1 mg Tablet 1 mg PO DAILY 0RF Rx Instructions: 3-5 tabs daily, changes based on weekly INR check hydroxychloroquine [Plaquenil] 200 mg Tablet 400 mg PO DAILY 0RF fluticasone propionate [Flonase] 50 mcg/actuation [place],Suspension 1 spray INTRANASAL DAILY 0RF Rx Instructions: administer into each nostril Flovent HFA 110 mcg/actuation Hfa Aerosol Inhaler 2 puff INHALATION BID 0RF B-complex with vitamin C [Nephro-Ruthann] Tablet 1 tab PO DAILY 0RF Systane Free (PF) 0.4-0.3 % Drops 2 drp OPHTHALMIC (EYE) DAILY 0RF Fiber Gummies 2.5 gram Tablet,Chewable 5 g PO DAILY 0RF melatonin 5 mg Tablet,Chewable 5 mg PO BEDTIME PRN (Reason: Sleep) 0RF benzonatate 200 mg PO TID PRN (Reason: Cough) 0RF Referrals: Bakari Lagos DO [Primary Care Provider] -
--- NOTE | 2021-11-25 10:21 | DI.CT.S_ITS ---
PROCEDURE: CT STROKE INDICATIONS: CODE STROKE TECHNIQUE: Noncontrast 4.5 mm thick angled axial sections acquired from the foramen magnum to the vertex, with coronal reformats. For radiation dose reduction, the following was used: automated exposure control, adjustment of mA and/or kV according to patient size. COMPARISON: None. FINDINGS: Image quality: Excellent. CSF spaces: Basal cisterns are patent. No extra-axial fluid collections. The ventricles are symmetric in size and shape. Brain: No intracranial bleeds or masses. There is cerebral volume loss for age, with resultant ventricular and sulcal prominence. There are periventricular and deep white matter chronic small vessel ischemic changes. There is intracranial internal carotid artery atherosclerosis. Skull and face: Calvarium and visualized facial bones appear intact, without suspicious lesions. Sinuses: Visualized sinuses and mastoids are clear. IMPRESSION: 1. No acute intracranial process. 2. Moderate to severe atrophy and chronic microvascular ischemic changes. The above findings were discussed with Dr. Miguel A Bourgeois on 11/25/2021 at 10:27 a.m. This study fulfills neurological imaging criteria for inclusion or exclusion of acute stroke therapies based on available published neurological guidelines. Dictated by: Sisi Osborn M.D. on 11/25/2021 at 10:25 Approved by: Sisi Osborn M.D. on 11/25/2021 at 10:27
[2021-11-25 10:43] LABS: Add Manual Diff / Slide Review NO; Basophils Absolute Auto 0 /uL (0-100); Basophils Percent Auto 0.3 % (0-2); Eosinophils Absolute Auto 100 /uL (0-450); Eosinophils Percent Auto 1.1 % (2-4); Hematocrit 32.7 % (36-46); Lymphocytes Absolute Auto 600 /uL (1100-4500); Lymphocytes Percent Auto 9.6 % (25-40); Mean Corpuscular HGB Conc 33.6 % (30-36); Mean Corpuscular Hemoglobin 35.9 PG (26-34); Mean Corpuscular Volume 106.8 fL (80-100); Monocytes Absolute Auto 300 /uL (0-900); Monocytes Percent Auto 4.6 % (3-14); Neutrophils Absolute Auto 5200 /uL (1500-7000); Neutrophils Percent Auto 84.4 % (50-75); Platelet Count 87 X10^3/uL (150-400); Red Blood Cell Count 3.06 X10^6/uL (4.0-5.2); White Blood Cell Count 6.2 X10^3/uL (4.5-11.0)
[2021-11-25 10:51] LABS: INR 1.6 (0.9-1.3); Prothrombin Time 17.7 SECONDS (10.1-12.7)
--- NOTE | 2021-11-25 10:54 | PC.NURSE ---
pt caregiver informed me pt was taken off warfarin on sat for a procedure this week.
[2021-11-25 10:57] LABS: Ammonia (NH3) 13 umol/L (9-30); Lactate (Lactic Acid) 1.3 mmol/L (0.7-2.1); Phosphorous 5.4 mg/dL (2.8-4.1)
[2021-11-25 11:04] LABS: Appearance Urine UA CLEAR; Bilirubin Urine UA NEGATIVE (NEGATIVE); Color Urine UA YELLOW; Glucose Urine UA NEGATIVE (Negative); Ketones Urine UA NEGATIVE (NEGATIVE); Leukocyte Esterase Urine UA NEGATIVE (NEGATIVE); Nitrite Urine UA NEGATIVE (Negative); Occult Blood Urine UA 1+ (Negative); Protein Urine UA 2+ (Negative); Urobilinogen Urine UA 0.2 E.U./dL (0.2)
[2021-11-25 11:11] LABS: UR Morphine/Opiate cutoff 300 Negative (Negative); Ur Creatinine Normal (Normal); Ur Specific Gravity Normal (Normal); Urine Amphetamines Negative (Negative); Urine Barbiturates Negative (Negative); Urine Benzodiazepines Negative (Negative); Urine Cocaine Negative (Negative); Urine MDMA Negative (Negative); Urine Methadone Negative (Negative); Urine Methamphetamines Negative (Negative); Urine Oxycodone Negative (Negative); Urine Phencyclidine Negative (Negative); Urine Tetrahydrocannabinol Negative (Negative); Urine Tricyclic Antidepressant Negative (Negative); Urine pH Normal (Normal)
[2021-11-25 11:28] LABS: Acetaminophen < 10 ug/mL (10-30); Alanine Aminotransferase 31 IU/L (<35); Albumin 4.3 g/dL (3.5-5.0); Albumin Globulin Ratio 1.3 (1.0-2.8); Alkaline Phosphatase 146 U/L (38-126); Aspartate Aminotransferase 66 IU/L (14-36); Bilirubin Total 0.7 mg/dL (0.2-1.3); Blood Urea Nitrogen 31 mg/dL (7-17); Calcium 8.9 mg/dL (8.4-10.2); Carbon Dioxide 22 mmol/L (22-32); Chloride 93 mmol/L (98-107); Creatine Kinase 90 U/L (30-135); Estimated Glomerular Filt Rate 14.2 mL/min (>60); Ethanol (ETOH) < 10 mg/dL; Globulin 3.4 g/dL (1.7-4.1); Glucose 98 mg/dL (80-110); HEMOLYSIS 21 (0-50); Potassium 5.2 mmol/L (3.4-5.1); Salicylate < 1.0 mg/dL (<20); Sodium 126 mmol/L (137-145); Total Protein 7.7 g/dL (6.3-8.2)
[2021-11-25 11:44] LABS: Prolactin 20.3 ng/mL (3.0-18.6)
[2021-11-25 11:48] LABS: Amorphous Sediment Urine 2+; Bacteria Urine None Seen; Culture Indicated Urine Cult Not Indicated; RBC Urine 0-1/HPF (0-5/HPF); WBC Urine None Seen (0-5/HPF)
[2021-11-25 12:08] LABS: Troponin I 0.261 ng/mL (0.01-0.034)
--- NOTE | 2021-11-25 12:18 | DI.MRI.S_ITS ---
PROCEDURE: MR HEAD/BRAIN WO CON INDICATIONS: Possible CVA TECHNIQUE: Non-contrast axial T1 spin echo, axial T2 fast spin echo, sagittal and axial FLAIR, coronal T2 fast spin echo, axial gradient echo, axial diffusion and ADC through the brain. COMPARISON: [facility], CT, CT STROKE, 11/25/2021, 10:11. FINDINGS: Image quality: Partially degraded by motion artifact. CSF spaces: Ventricles appear symmetric in size and shape. Basal cisterns are patent. No extra-axial fluid collections. Brain: No intracranial bleeds or mass effects. There is cerebral volume loss for age. There are periventricular and deep white matter chronic small vessel ischemic changes. Brainstem appears normal. Diffusion-weighted images show no acute ischemic insults. No chronic ischemic insults. Normal intravascular flow voids are present. Skull and face: Calvarial bone marrow is normal in signal. Orbits are normal. Sinuses: Sinuses and mastoids are clear. IMPRESSION: 1. Volume loss and small vessel ischemic disease. 2. No acute process. No recent infarct. Dictated by: Doreen Nesbitt M.D. on 11/25/2021 at 15:23 Approved by: Doreen Nesbitt M.D. on 11/25/2021 at 15:24
[2021-11-25 12:20] LABS: COVID19 -Nasal RAPID Negative (Negative)
[2021-11-25] MEDS: ASPIRIN 81 MG CHEW TAB 324 MG PO (12:32)
--- NOTE | 2021-11-25 13:27 | PC.NURSE ---
upon patient arrival multiple bruises at different stages of healing. bilateral hips, right hand, left elbow, right rib cage.
[2021-11-25 20:16] LABS: Troponin I 0.223 ng/mL (0.01-0.034)
[2021-11-26] VITALS (24 sets, daily range): BP systolic 111–135; BP diastolic 53–60; PULSE 62–66; RESP 13–25; O2SAT 82–98
--- NOTE | 2021-11-26 00:47 | PC.NURSE ---
changed pt bed
[2021-11-26] MEDS: ACETAMINOPHEN 325 MG TABLET 650 MG PO (04:46)
[2021-11-26 06:48] LABS: Troponin I 0.265 ng/mL (0.01-0.034)
== END 2021-11-26 09:32 | disposition home or self-care (01) ==
PROVIDERS: Emergency Medicine; Emergency Provider Emergency Medicine; PCP Family Medicine
DX: R41.82 Altered mental status, unspecified (principal); R55 Syncope and collapse; N18.6 End stage renal disease; Z99.2 Dependence on renal dialysis; R74.8 Abnormal levels of other serum enzymes; Z20.822 Contact with and (suspected) exposure to COVID-19; Z46.6 Encounter for fitting and adjustment of urinary device
CPT/HCPCS: 36415; 51701; 70450; 70551; 80053; 80305; 80320; 80329; 81001; 82140; 82550; 82962; 83605; 83735; 84100; 84146; 84484; 85025; 85610; 87040; 87635; 93005; 93010; 99285; 99291; 99292; C9803; G0480

== ENCOUNTER → 2022-01-07 12:56 | Outpatient (CLI) | payer MEDICARE, OTHER, SELFPAY ==
--- NOTE | 2022-01-07 | DI.RAD.S_ITS ---
PROCEDURE: FL BARIUM SWALLOW W SPEECH INDICATIONS: Dysphagia, unspecified COMPARISON: None. TECHNIQUE: Examination was conducted in conjunction with speech pathology per standard protocol. In the lateral projection, filming was performed of the patient swallowing. AP projection filming may also be performed with patient swallowing. COMPARISON: FINDINGS: Function: The oral preparatory phase appears normal, with proper containment. The subsequent oral propulsive phase, pharyngeal phase, and esophageal phase of swallowing also appear normal with all proffered substances. Multiple episodes of laryngotracheal penetration identified with liquids. Single episode of laryngotracheal aspiration identified during sequential swallowing of liquids. Bilateral vallecular and piriform sinus pooling noted which cleared with repeat swallows. Morphology: No cricopharyngeal bar is identified. No cervical esophageal webs. No Zenker's diverticulum. There is delayed passage of calibrated 13 millimeter tablet in the upper esophagus and at the gastroesophageal junction. IMPRESSION: 1. Laryngotracheal aspiration and penetration . 2. Delayed passage of barium tablet in the upper esophagus at the GE junction. Esophageal stricture is not excluded. Recommend gastroenterology consultation for potential endoscopic evaluation. Please see speech pathology report for additional study details. Dictated by: Maya Shepherd MD, PhD on 01/07/2022 at 14:23 Approved by: Maya Shepherd MD, PhD on 01/07/2022 at 14:26
--- NOTE | 2022-01-07 16:49 | ST.SWALLOW ---
Visit Care Team Role Provider Type Bakari Lagos DO Primary Care Provider Non-Staff Specialty: Family Practice Address: [address], [place], [address] Email: CARL Covington Attending Provider Non-Staff Referring Provider Specialty: Nursing Address: [address] [place] [address]. 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 Pt was accompanied by her caregiver. According to her caregiver, pt has a medical history of CHF, end- stage renal disease and respiratory failure. The caregiver noted that the pt was recently an inpatient at [facility] in [place] for ~2 weeks with respiratory problems. Subjective Observations Pt was seated in th fluoroscopy chair and provided with procedures and instructions, to which she indicated she understood and agreed to proceed. Patient Positioning Position View Lateral Imaging Lateral View Textures Administered Trials Presented Thin Liquid via Spoon,Thin Liquid via Cup,[place] Liquid via Spoon,[place] Liquid via Cup,Pudding Thick Liquid via Spoon,Regular Textures,Barium Tablet Oral Phase Source: MBSIMP (TM) (C) Bolus Specific Scoring Grid Lip Closure Mild Impairment Tongue Control During Bolus Hold WFL Bolus Prep/Mastication WFL Bolus Transport/Lingual Motion WFL A/P Lingual Propulsion Delay No Oral Residue Minimal Impairment Residue Clearing WFL Nasal Regurgitation No Additional Oral Phase Observations Pt's dentition was natural with all teeth present and in good hygiene. Pt's lip closure was weak allowing for contrast leakage down her chin x5, dripping on gown. Caregiver reported that pt is drooling frequently and will, at times, soak her shirt. Mastication, bolus control and AP movement were WFL. Minimal oral residue noted. Pharyngeal Phase Source: MBSIMP (TM) (C) Bolus Specific Scoring Grid Delayed Initiation of Pharyngeal Swallow Yes: Premature to the pyriform sinuses. Over 50% of the bolus of THIN liquids Soft Palate Elevation No Impairment (WNL) Tongue Base Strength/Range of Motion Moderate Impairment Residue Along the Tongue Base No Clearance of Residue Along Tongue Base WFL Laryngeal Elevation Moderate Impairment Anterior Hyoid Movement Moderate Impairment Epiglottic Range of Motion Mild Impairment Vallecular Residue Yes: Moderately reduced laryngopharyngeal contact, resulting in moderate residue Clearance of Vallecular Residue Moderate Impairment Laryngeal Vestibular Closure Moderate Impairment Pharyngeal Stripping Wave Mild Impairment Posterior Pharyngeal Wall Residue No Upper Esophageal Sphincter Opening WFL Residue in the Pyriform Sinuses Yes: Premature to the pyriform sinuses. Over 50% of the bolus of THIN liquids Clearance of Residue in the Pyriform Mild Impairment Sinuses Esophageal Clearance Upright Position No Impairment (WNL) Pharyngoesophageal Backflow Observed No Additional Pharyngeal Phase Observations Significant premature splillage to the pyriform sinuses. Over 50% of the bolus pooled in the pyriform sinuses bilaterally preswallow . Hyolaryngeal elevation was reduced for height and forward motion. This negatively impacted the epilglottis inversion. While the epiglottis fully inverted, penetration into the laryngeal vestibule occurred 5x with two of the 5 triggering a cough and aspiration x1. This indicated a weak laryngeal seal. Observing the pt drink thin liquids in consecutive swallows, the pt did not swallow the first boluus before adding more liquid for the the second bolus, resulted in filling the pyriforms, significant penetration and aspiration x1. [place] thick liquids were trialed, which resulted in improved swallow response, reduced pooling in the pyriform sinuses and decreased overall pharyngeal pooling. The slower viscosity of nectar thick liquids allows for slowed bolus flow resulting in better ability to physically respond to increased pharyngeal sensation , and swallow more safely. With pudding thick and cookie trials, the pt had no difficulty with swallowing. A barium tablet with water was delayed 3x: in the upper esophagus near the diaphragm and at the LES. Recommend GI referral. A/P View Clinical Impressions Findings Pt demonstrates pharyngeal phase dysphagia. Thin liquids were observed to be difficult to control, resulting in laryngeal penetration and aspiration. [place] thick liquids were safely tolerated without s/sx aspiration. Reviewed the findings with the pt and her caregiver. Recommended small pieces of solid foods, chewed well, nectar thick liquids and medication crushed in a carrier. Pt and caregiver agreed with the plan of care and swallow precautions. Rehabilitation Potential Fair Patient Appropriate for Therapy No Recommendations Diet Liquids Order Cro[place] Diet Order Mechanical Soft Medication Recommendation Crushed in Carrier Additional Dietary Needs Single Sips,1:1 Supervision,1: 1 Assistance Aspiration Precautions Recommended Precautions Upright at 90 Degrees,Frequent Rest Periods,Small Bites/Sips Additional Precautions Drink 1 sip at a time. No consecutive swallows. Treatment Plan Recommended Referrals GI Consult
== END ==
PROVIDERS: PCP Family Medicine; Referring Provider Nurse Practitioner Family; Visit Provider Nurse Practitioner Family
DX: R13.10 Dysphagia, unspecified (principal); R47.9 Unspecified speech disturbances
CPT/HCPCS: 74230; 92611